=== PATIENT | female | born 1935 | race Caucasian/White ===

== ENCOUNTER 2016-04-11 05:10 | Emergency (ER) | payer MEDICARE, MEDICAID ==
[~2016-04-11] VITALS: Ht 152.4 cm; Wt 64.0 kg
[~2016-04-11 05:10] MED LIST: AMIT50TA13 PO; CARV25TA OR; INSU100V3 SC; LISI-357 PO; MECL25CH OR; SIMV80TA OR
[2016-04-11 05:11] VITALS: BP 198/77; PULSE 57; RESP 15; TEMP 97.6; O2SAT 98
[2016-04-11 05:21] VITALS: BP 191/74
[2016-04-11] MEDS ORDERED: AMIT10TA6 PO (05:29)
[2016-04-11] MEDS ORDERED: HYDR12.57 PO (05:29)
[2016-04-11] MEDS ORDERED: INSU100V3 SQ (05:29)
[2016-04-11] MEDS ORDERED: METO25TA3 PO (05:29)
[2016-04-11] MEDS ORDERED: NITR1SUB3 SL (05:29)
[2016-04-11] MEDS ORDERED: ATOR1TAB18 PO (05:29)
[2016-04-11] MEDS ORDERED: LEVO500T3 PO (05:29)
[2016-04-11] MEDS ORDERED: NIFE90TA2 (05:29)
[2016-04-11] MEDS ORDERED: SODIUM CHLOR 0.9% 1000 ML INJ 1,000 ML IV SCH (05:45)
--- NOTE | 2016-04-11 05:47 | PD ---
HPI Chief Complaint: Dizziness Time Seen by Provider: 05:22 Travel History International Travel<30 days: No Contact w/Intl Traveler<30days: No Traveled to known affect area: No History of Present Illness HPI The patient is 80 year old female who presents to the [facility] emergency department with a history of dizziness that began 3 weeks ago and has been associated with a headache that is bitemporal and throbbing in sensation and a throbbing sensation in her back. Patient reports that she last saw her primary care physician regarding this last week. She reports that she is also been admitted to [facility] on 2 occasions related to this and elevated blood pressure over the last few weeks. She reports that one time she was admitted for 3 days and then last week she was admitted for 2 days between Monday and Monday. She reports that she had a CAT scan done of the brain that was reportedly unremarkable. She reports that she's had some changes to her blood pressure medication, however she is unsure of the exact details. She reports that she did fill her prescriptions and has been taking them as prescribed, however her blood pressure continues to be elevated. 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 The patient denies having any numbness or tingling to her extremities. She denies having any one- sided weakness, difficulty with word finding ability, vision changes, or facial droop. The patient reports that the room seems to spend when she moves her head. She reports that the symptoms seemed to come and go. The patient denies having any recent fevers, cough, congestion, neck pain, chest pain, shortness of breath, abdominal pain, vomiting, diarrhea, urinary symptoms, or other neurologic symptoms. 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 The patient denies being followed by a neurologist or neurosurgeon. She reports that she has not had an MRI done in years. Diabetes: Yes (INSULIN DEPENDENT) Patient Takes Glucophage: No Hypertension: Yes Tetanus Vaccination: > 5 Years : 5 Para: 5 Past Surgical History Narrative Surgical The patient's past surgical history is significant for hysterectomy, brain tumor resection. Abdominal Surgery: Yes Hysterectomy: Yes Neurologic Surgery: Yes (BRAIN TUMOR REMOVED) Other Surgery: Yes Social History Alcohol Use: No Tobacco Use: No Substance Use: No Allergies-Medications (Allergen,Severity, Reaction): Coded Allergies: Penicillin (Verified Allergy, Intermediate, Rash, 04/11/16) Reported Meds & Prescriptions Reported Meds & Active Scripts Active Reported Humulin N Inj (Insulin Human NPH) 1,000 Unit/10 Ml Vial 1 Units SQ Nitroglycerin SL (Nitroglycerin) 0.4 Mg Subl 0.4 Mg SL DIRECTED PRN ONE TABLET UNDER THE TONGUE NEEDED FOR CHEST PAIN, MAY REPEAT EVERY FIVE MINUTES FOR A TOTAL OF 3 DOSES OR CALL 911 IF NO RELIEF Nifedipine ER (Nifedipine) 90 Mg Tab 30 Mg Nifedipine ER (Nifedipine) 90 Mg Tab Levofloxacin 500 Mg Tab 500 Mg PO DAILY Hydrochlorothiazide 12.5 Mg Cap 12.5 Mg PO DAILY Amitriptyline (Amitriptyline HCl) 10 Mg Tab 10 Mg PO HS Metoprolol Tartrate 25 Mg Tab 25 Mg PO BID Atorvastatin (Atorvastatin Calcium) 80 Mg Tab 80 Mg PO HS Humulin N 1 SC ACHS SLIDING SCALE Carvedilol 25 mg (Carvedilol) 25 Mg Tab 25 Mg OR DAILY Simvastatin 80 mg (Simvastatin) 80 Mg Tab 80 Mg OR DAILY Meclizine Hcl25 M3 25 Mg Chw 25 Mg OR DAILY Lisinopril 5 mg (Lisinopril) 5 Mg Tab 5 Mg PO DAILY Review of Systems Except as stated in HPI: all other systems reviewed are Neg General / Constitutional: No: Fever Eyes: No: Visual changes HENT: Positive: Headaches, Vertigo, No: Lightheadedness, Rhinorrhea, Congestion, Neck Stiffness, Neck Pain Cardiovascular: No: Chest Pain or Discomfort Respiratory: No: Shortness of Breath Gastrointestinal: No: Abdominal Pain Genitourinary: No: Dysuria Musculoskeletal: No: Pain Skin: No Rash Neurologic: Positive: Dizziness, Headache, No: Weakness, Focal Abnormalities, Change in Mentation, Slurred Speech, Sensory Disturbance Psychiatric: No: Depression Endocrine: No: Polydipsia Hematologic/Lymphatic: No: Easy Bruising Physical Exam Narrative General: The patient is a well-developed well-nourished female in no acute distress. The patient's initial blood pressure on arrival is 194/74. Head and Neck exam: Head is normocephalic atraumatic. Eyes: EOMI, pupils are equal round and reactive to light. Nose: Midline septum with pink mucous membranes Mouth: Dentition unremarkable. Moist mucus membranes. Posterior oropharynx is not erythematous. No tonsillar hypertrophy. Uvula midline. Airway patent. Neck: No palpable lymphadenopathy. No nuchal rigidity. No thyromegaly. Cardiovascular: Regular rate and rhythm without murmurs, gallops, or rubs. Lungs: Clear to auscultation bilaterally. No wheezes, rhonchi, or rales. Abdomen: Soft, without tenderness to palpation in all 4 quadrants of the abdomen. No guarding, rebound, or rigidity. Normal bowel sounds are audible. No tenderness on palpation of McBurney's point. Extremities: No clubbing, cyanosis, or edema. No calf tenderness on palpation. Back: No spinous process tenderness to palpation. No costovertebral angle tenderness to palpation. Neurologic Exam: Cranial nerves 2-12 were intact on exam. Strength is 5/5 in all 4 extremities. No sensory deficits noted. No dysdiadochokinesis. Good finger to nose and Heel to griggs bilaterally. Skin Exam: No rash noted. Intact skin that is warm and dry. Data Data Last Documented VS Vital Signs Date Time Temp Pulse Resp B/P Pulse Ox O2 Delivery O2 Flow Rate FiO2 04/11/16 05:21 191/74 04/11/16 05:11 97.6 57 15 98 Room Air Orders Electrocardiogram (04/11/16 05:36) Complete Blood Count With Diff (04/11/16 05:36) Comprehensive Metabolic Panel (04/11/16 05:36) Prothrombin Time / Inr (Pt) (04/11/16 05:36) Act Partial Throm Time (Ptt) (04/11/16 05:36) Lipase (04/11/16 05:36) Urinalysis - C+S If Indicated (04/11/16 05:36) Iv Access Insert/Monitor (04/11/16 05:36) Ecg Monitoring (04/11/16 05:36) Oximetry (04/11/16 05:36) Mri Brain W&W/O Contrast (04/11/16 ) Sodium Chlor 0.9% 1000 Ml Inj (Ns 1000 M (04/11/16 05:45) Lorazepam Inj (Ativan Inj) (04/11/16 06:45) Lorazepam Inj (Ativan Inj) (04/11/16 06:45) Labs Laboratory Tests Test 04/11/16 04/11/16 06:00 06:38 White Blood Count 5.6 TH/MM3 Red Blood Count 4.21 MIL/MM3 Hemoglobin 12.0 GM/DL Hematocrit 36.2 % Mean Corpuscular Volume 86.0 FL Mean Corpuscular Hemoglobin 28.4 PG Mean Corpuscular Hemoglobin 33.0 % Concent Red Cell Distribution Width 15.0 % Platelet Count 164 TH/MM3 Mean Platelet Volume 9.2 FL Neutrophils (%) (Auto) 64.6 % Lymphocytes (%) (Auto) 15.2 % Monocytes (%) (Auto) 10.8 % Eosinophils (%) (Auto) 8.7 % Basophils (%) (Auto) 0.7 % Neutrophils # (Auto) 3.6 TH/MM3 Lymphocytes # (Auto) 0.8 TH/MM3 Monocytes # (Auto) 0.6 TH/MM3 Eosinophils # (Auto) 0.5 TH/MM3 Basophils # (Auto) 0.0 TH/MM3 CBC Comment DIFF FINAL Differential Comment Sodium Level 140 MEQ/L Potassium Level 4.0 MEQ/L Chloride Level 105 MEQ/L Carbon Dioxide Level 24.8 MEQ/L Anion Gap 10 MEQ/L Blood Urea Nitrogen 34 MG/DL Creatinine 1.68 MG/DL Estimat Glomerular Filtration 29 ML/MIN Rate Random Glucose 137 MG/DL Calcium Level 9.3 MG/DL Total Bilirubin 0.4 MG/DL Aspartate Amino Transf 52 U/L (AST/SGOT) Alanine Aminotransferase 65 U/L (ALT/SGPT) Alkaline Phosphatase 127 U/L Total Protein 6.6 GM/DL Albumin 3.4 GM/DL Lipase 78 U/L Prothrombin Time 10.5 SEC Prothromb Time International 1.0 RATIO Ratio Activated Partial 24.7 SEC Thromboplast Time MDM Medical Decision Making Medical Screen Exam Complete: Yes Emergency Medical Condition: Yes Medical Record Reviewed: Yes Differential Diagnosis Benign positional vertigo, versus Mnire's disease, versus labyrinthitis, versus intracranial abnormality Narrative Course During the course of the patients emergency department visit, the patients history, examination, and differential diagnosis were reviewed with the patient. The patient had IV access obtained and blood work sent for analysis. The patient was placed on a compliance monitor with oximetry and blood pressure monitoring. The patient was started on normal saline at 75 mL per hour. The patient's records from [facility] were requested. An MRI of the brain was ordered. The patient was provided normal saline IV fluids. The patient's blood pressure will be monitored for improvement. The patients laboratory studies were reviewed and remarkable for a CBC that is unremarkable, CMP is remarkable for BUN of 34, creatinine 1.68, however the patient does have a history of renal insufficiency from looking at her other record at [facility] with a BUN previously is 20 and 1.28 creatinine, respectively. The patient's AST is 52, ALT 65, alkaline phosphatase 127, lipase 78. The patient's case was checked out to Dr. Brady for review of the patient's MRI of the brain recheck of the patient's blood pressure with disposition based on the conclusion of her workup. Diagnosis Primary Impression: Vertigo Additional Impression: Hypertension Prema Parkinson MD Apr 11, 2016 05:47
[2016-04-11 06:16] LABS: AUTOMATED NEUTROPHIL # 3.6 TH/MM3 (1.8-7.7); BASOPHIL % 0.7 % (0.0-2.0); EOSINOPHIL # 0.5 TH/MM3 (0-0.4); EOSINOPHIL % 8.7 % (0.0-4.0); HEMATOCRIT 36.2 % (35.0-46.0); HEMO FLAGS DIFF FINAL; LYMPH % 15.2 % (9.0-44.0); LYMPHOCYTE # 0.8 TH/MM3 (1.0-4.8); MEAN CORPUSCULAR HEMOGLOBIN 28.4 PG (27.0-34.0); MONO % 10.8 % (0.0-8.0); NEUT % 64.6 % (16.0-70.0); PLATELET COUNT 164 TH/MM3 (150-450); RED BLOOD COUNT 4.21 MIL/MM3 (4.00-5.30); WHITE BLOOD COUNT 5.6 TH/MM3 (4.0-11.0)
[2016-04-11 06:38] LABS: ALKALINE PHOSPHATASE 127 U/L (45-117); TOTAL BILIRUBIN ADULT 0.4 MG/DL (0.2-1.0)
[2016-04-11 06:45] LABS: ALT (GPT) 65 U/L (10-53); ANION GAP 10 MEQ/L (5-15); AST (GOT) 52 U/L (15-37); BICARBONATE 24.8 MEQ/L (21.0-32.0); BLOOD UREA NITROGEN 34 MG/DL (7-18); CHLORIDE 105 MEQ/L (98-107); GLOMERULAR FILTRATION RATE 29 ML/MIN (>89); SODIUM (NA) 140 MEQ/L (136-145)
[2016-04-11] MEDS ORDERED: LORazepam 2 MG/ML VIAL IM ONE (06:45)
[2016-04-11] MEDS ORDERED: LORazepam 2 MG/ML VIAL IV PUSH ONE (06:45)
[2016-04-11 06:59] LABS: APTT (PATIENT) 24.7 SEC (24.3-30.1); PROTHROMBIN TIME - PATIENT 10.5 SEC (9.8-11.6)
[2016-04-11 07:38] VITALS: BP 173/67; PULSE 73; RESP 16; O2SAT 98
--- NOTE | 2016-04-11 08:30 | RADRPT ---
EXAM DATE/TIME: 04/11/2016 07:59 [facility] COMPARISON: CT BRAIN W/O CONTRAST, July 02, 2012, 15:30. INDICATIONS : Dizziness. MEDICAL HISTORY : Hypertension. SURGICAL HISTORY : Craniotomy. Cholecystectomy. Hysterectomy. ENCOUNTER: Subsequent ACUITY: 2 months PAIN SCORE: 0/10 LOCATION: cranial TECHNIQUE: Multiplanar, multisequence MRI of the brain was performed without contrast. FINDINGS: Patient is status post right fronto temporal craniotomy. There is no evidence for acute infarction on diffusion weighted imaging. There is encephalomalacia and gliosis in the right posterior temporal re gion again noted. There is mild atrophy greatest in the frontal regions. There is no mass effect or h emorrhage.. CONCLUSION: No acute disease. Stable appearance of the brain. You Zuleta MD on April 11, 2016 at 8:27 Board Certified Radiologist. This report was verified electronically.
[2016-04-11 08:44] LABS: BACTERIA, URINE FEW /hpf; BLOOD, URINE TRACE (NEG); COMMENT (UR) CULTURE INDICATED; CULTURE IF INDICATED CULTURE INDICATED; GLUCOSE,URINE NEG (NEG); KETONE, URINE NEG (NEG); MUCUS URINE FEW /lpf (OCC); NITRITE,URINE NEG (NEG); PH, URINE 5.5 (5.0-8.5); SQUAMOUS EPITHELIAL CELL URINE 7 /hpf (0-5); TRANSITIONAL EPI CELLS, URINE <1 /hpf; URINE COLOR YELLOW (YELLW/STRAW)
[2016-04-11] MEDS ORDERED: CEPH-460 PO (08:57)
--- NOTE | 2016-04-11 08:57 | PD ---
Data Data Last Documented VS Vital Signs Date Time Temp Pulse Resp B/P Pulse Ox O2 Delivery O2 Flow Rate FiO2 04/11/16 07:38 73 16 173/67 98 Room Air 04/11/16 05:11 97.6 Orders Electrocardiogram (04/11/16 05:36) Complete Blood Count With Diff (04/11/16 05:36) Comprehensive Metabolic Panel (04/11/16 05:36) Prothrombin Time / Inr (Pt) (04/11/16 05:36) Act Partial Throm Time (Ptt) (04/11/16 05:36) Lipase (04/11/16 05:36) Urinalysis - C+S If Indicated (04/11/16 05:36) Iv Access Insert/Monitor (04/11/16 05:36) Ecg Monitoring (04/11/16 05:36) Oximetry (04/11/16 05:36) Sodium Chlor 0.9% 1000 Ml Inj (Ns 1000 M (04/11/16 05:45) Lorazepam Inj (Ativan Inj) (04/11/16 06:45) Lorazepam Inj (Ativan Inj) (04/11/16 06:45) Mri Brain W/O Contrast (04/11/16 ) Urine Culture (04/11/16 08:26) Labs Laboratory Tests Test 04/11/16 04/11/16 04/11/16 06:00 06:38 08:26 White Blood Count 5.6 TH/MM3 Red Blood Count 4.21 MIL/MM3 Hemoglobin 12.0 GM/DL Hematocrit 36.2 % Mean Corpuscular Volume 86.0 FL Mean Corpuscular Hemoglobin 28.4 PG Mean Corpuscular Hemoglobin 33.0 % Concent Red Cell Distribution Width 15.0 % Platelet Count 164 TH/MM3 Mean Platelet Volume 9.2 FL Neutrophils (%) (Auto) 64.6 % Lymphocytes (%) (Auto) 15.2 % Monocytes (%) (Auto) 10.8 % Eosinophils (%) (Auto) 8.7 % Basophils (%) (Auto) 0.7 % Neutrophils # (Auto) 3.6 TH/MM3 Lymphocytes # (Auto) 0.8 TH/MM3 Monocytes # (Auto) 0.6 TH/MM3 Eosinophils # (Auto) 0.5 TH/MM3 Basophils # (Auto) 0.0 TH/MM3 CBC Comment DIFF FINAL Differential Comment Sodium Level 140 MEQ/L Potassium Level 4.0 MEQ/L Chloride Level 105 MEQ/L Carbon Dioxide Level 24.8 MEQ/L Anion Gap 10 MEQ/L Blood Urea Nitrogen 34 MG/DL Creatinine 1.68 MG/DL Estimat Glomerular Filtration 29 ML/MIN Rate Random Glucose 137 MG/DL Calcium Level 9.3 MG/DL Total Bilirubin 0.4 MG/DL Aspartate Amino Transf 52 U/L (AST/SGOT) Alanine Aminotransferase 65 U/L (ALT/SGPT) Alkaline Phosphatase 127 U/L Total Protein 6.6 GM/DL Albumin 3.4 GM/DL Lipase 78 U/L Prothrombin Time 10.5 SEC Prothromb Time International 1.0 RATIO Ratio Activated Partial 24.7 SEC Thromboplast Time Urine Color YELLOW Urine Turbidity HAZY Urine pH 5.5 Urine Specific [place] 1.008 Urine Protein TRACE mg/dL Urine Glucose (UA) NEG mg/dL Urine Ketones NEG mg/dL Urine Occult Blood TRACE Urine Nitrite NEG Urine Bilirubin NEG Urine Urobilinogen LESS THAN 2.0 MG/DL Urine Leukocyte Esterase LARGE Urine RBC 8 /hpf Urine WBC /hpf Urine Squamous Epithelial 7 /hpf Cells Urine Transitional Epithelial <1 /hpf Cells Urine Bacteria FEW /hpf Urine Mucus FEW /lpf Microscopic Urinalysis Comment CULTURE INDICATED MDM Supervised Visit with JUAN M: Yes Narrative Course 80-year-old woman, here for evaluation of headache and blood pressure problems. She's been adjusting her blood pressure medications. 2 previous hospitalizations for the same complaints. Patient was viable Dr. Parkinson was signed out to to follow-up results of MRI and diagnostic testing. Studies show: CBC is unremarkable CMP with mildly elevated BUN and creatinine, mildly elevated AST ALT and alkaline phosphatase Lipase is normal UA with innumerable white blood cells MRI brain: No acute disease. FINAL: 80 year-old woman, blood pressures being modified as an outpatient. She has a lot of pyuria, this could be contributing or vertigo. Recommend treatment for UTI, outpatient follow-up for blood pressure. Diagnosis Primary Impression: Vertigo Additional Impressions: Hypertension UTI (urinary tract infection) Additional Instruction: Take antibiotics as prescribed. Continue blood pressure medications. Follow up with her primary doctor in 2-3 days. Return to the emergency department for any new or worsening symptoms. Med/Other Pt SpecificInfo: Prescription(s) given Scripts Cephalexin (Keflex)500 Mg Spw091 Mg PO Q8H #30 CAP Ref 0 Prov:Fadi Brady MD 04/11/16 Disposition: 01 DISCHARGE HOME Condition: Stable Fadi Brady MD Apr 11, 2016 08:57
--- NOTE | 2016-04-11 18:23 | EKG ---
Date Performed: 04/11/2016 Time Performed: 06:21:27 PTAGE: 80 years EKG: Sinus rhythm WITH FIRST DEGREE AV BLOCK Since previous tracing, no significant change noted ABNORMAL ECG PREVIOUS TRACING : 05/28/1998 20.30 DOCTOR: Anaya Irene Interpretating Date/Time 04/11/2016 18:21:34
== END 2016-04-11 10:10 | disposition home or self-care (01) ==
LOC: NEPE 05:10
DX: R42 Dizziness and giddiness (principal); I10 Essential (primary) hypertension; N39.0 Urinary tract infection, site not specified; B96.20 Unspecified Escherichia coli [E. coli] as the cause of diseases classified elsewhere; R51 Headache; R94.31 Abnormal electrocardiogram [ECG] [EKG]; H93.19 Tinnitus, unspecified ear; E11.9 Type 2 diabetes mellitus without complications; E78.5 Hyperlipidemia, unspecified; Z79.4 Long term (current) use of insulin; Z87.448 Personal history of other diseases of urinary system; Z79.899 Other long term (current) drug therapy
CPT/HCPCS: 70551; 80053; 81001; 83690; 85025; 85610; 85730; 87077; 87086; 87186; 93005; 96361; 96374; 99284; J2060; J7030

== ENCOUNTER 2017-05-14 06:08 | Inpatient (IN) | payer MEDICARE, MEDICAID ==
[~2017-05-14] VITALS: Ht 152.4 cm; Wt 65.1 kg
[2017-05-14] VITALS (21 sets, daily range): BP systolic 153–223; BP diastolic 66–98; PULSE 44–60; RESP 14–27; TEMP 97.6–98.8; O2SAT 94–100
[~2017-05-14 06:08] MED LIST changes: +AMIT10TA6 PO; -AMIT50TA13 PO; +ATOR80TA45 PO; -CARV25TA OR; +CEPH-460 PO; +HYDR12.57 PO; -INSU100V3 SC; +INSU100V3 SQ; +LEVO500T3 PO; -LISI-357 PO; -MECL25CH OR; +METO25TA3 PO; +NIFE90TA2; +NITR1SUB3 SL; -SIMV80TA OR
[2017-05-14] MEDS ORDERED: SODIUM CHLORIDE 0.9% FLUSH 10 ML FLUSH IVF PRN (06:30)
--- NOTE | 2017-05-14 06:36 | PD ---
HPI Chief Complaint: Respiratory Symptoms Time Seen by Provider: 06:30 Travel History International Travel<30 days: No Contact w/Intl Traveler<30days: No Traveled to known affect area: No History of Present Illness HPI 81-year-old female presents to the emergency department complaining of 3 weeks of shortness of breath that has progressively worsened. Patient states 1 week ago Monday she was seen at [facility] where she had multiple tests done and they told her that there is no fluid on her lungs and that she was fine and she go home and follow-up with her primary care provider. No new medications were added and none of her current medications were adjusted or changed. Patient followed up with her primary care provider on Monday and again no change in medications and no additional medications no further testing was done. Patient was given an appointment for follow-up May 17. Patient states due to progressive shortness of breath at rest, with exertion, and with orthopnea she decided to come to the emergency room at this time. Patient is also noted some discomfort in her chest that is nonradiating and does not refer to the neck job back shoulder arms or abdomen. Patient does not report any fever or chills and denies any productive cough. Patient had no hemoptysis. Patient is not reporting nausea vomiting or diarrhea or abdominal pain. No hematemesis no coffee-ground emesis no melena hematochezia. Patient denies any urinary symptoms. Patient does have history of hypertension dyslipidemia and diabetes but denies known coronary vessel disease and denies tobacco use. Patient has family history of heart disease in her mother but not premature onset. Patient has undergone a stress test approximately 5 years ago that was reportedly normal. Patient rates discomfort/pain 0/10 in intensity. Patient also states she has had no lower extremity pain or swelling and no recent long distance travel protracted bedrest surgical procedure and no history of clotting disorder. Review of medical records identifies patient has had coronary stents in the past. [facility] Past Medical History Narrative Medical Aspirin use, CAD with coronary stent per review of medical record, hypertension , dyslipidemia, diabetes; cholecystectomy hysterectomy brain tumor excision; no tobacco use; nursing notes reviewed Cardiovascular Problems: Yes (cardiac stent) High Cholesterol: Yes Coronary Artery Disease: Yes Diabetes: Yes (INSULIN DEPENDENT) Patient Takes Glucophage: No Hypertension: Yes Tetanus Vaccination: Unknown Influenza Vaccination: No ?: Not : 5 Para: 5 Past Surgical History Abdominal Surgery: Yes Cholecystectomy: Yes Coronary Stent: Yes Hysterectomy: Yes Neurologic Surgery: Yes (BRAIN TUMOR REMOVED) Other Surgery: Yes Social History Alcohol Use: No Tobacco Use: No Substance Use: No Allergies-Medications (Allergen,Severity, Reaction): Coded Allergies: Penicillins (Verified Allergy, Severe, 05/14/17) rash Reported Meds & Prescriptions Reported Meds & Active Scripts Active Keflex (Cephalexin) 500 Mg Cap 500 Mg PO Q8H Reported Humulin N Inj (Insulin Human NPH) 1,000 Unit/10 Ml Vial 1 Units SQ Nitroglycerin SL (Nitroglycerin) 0.4 Mg Subl 0.4 Mg SL DIRECTED PRN ONE TABLET UNDER THE TONGUE NEEDED FOR CHEST PAIN, MAY REPEAT EVERY FIVE MINUTES FOR A TOTAL OF 3 DOSES OR CALL 911 IF NO RELIEF Nifedipine ER (Nifedipine) 90 Mg Tab 30 Mg Nifedipine ER (Nifedipine) 90 Mg Tab Levofloxacin 500 Mg Tab 500 Mg PO DAILY Hydrochlorothiazide 12.5 Mg Cap 12.5 Mg PO DAILY Amitriptyline (Amitriptyline HCl) 10 Mg Tab 10 Mg PO HS Metoprolol Tartrate 25 Mg Tab 25 Mg PO BID Atorvastatin (Atorvastatin Calcium) 80 Mg Tab 80 Mg PO HS Review of Systems Except as stated in HPI: all other systems reviewed are Neg General / Constitutional: No: Fever, Chills HENT: No: Congestion Cardiovascular: Positive: Chest Pain or Discomfort, Dyspnea on exertion, No: Palpitations, Syncope, Edema Respiratory: Positive: Shortness of Breath, Orthopnea, No: Pleuritic Pain Gastrointestinal: No: Nausea, Vomiting, Diarrhea, Abdominal Pain Genitourinary: No: Dysuria, Flank Pain Musculoskeletal: No: Myalgias, Arthralgias Skin: No Rash Neurologic: No: Weakness, Dizziness, Syncope Psychiatric: No: Anxiety Hematologic/Lymphatic: No: Lymph Node Enlargement Physical Exam Narrative GENERAL: Well-developed well-nourished elderly female in no acute distress or respiratory distress resting supine; GCS 15 SKIN: Warm and dry. HEAD: Normocephalic. EYES: No scleral icterus. No injection or drainage. NECK: Supple, trachea midline. No JVD or lymphadenopathy. CARDIOVASCULAR: Regular rate and rhythm without murmurs, gallops, or rubs. Radial and dorsalis pedis pulses 2+ to palpation bilaterally RESPIRATORY: Breath sounds equal bilaterally. No accessory muscle use. GASTROINTESTINAL: Abdomen soft, non-tender, nondistended. MUSCULOSKELETAL: No cyanosis, or edema. No lower leg ankle or pedal edema negative Homans sign no posterior calf cording. No redness no increased warmth no pallor or coolness. BACK: Nontender without obvious deformity. No CVA tenderness. Data Data Last Documented VS Vital Signs Date Time Temp Pulse Resp B/P (MAP) Pulse Ox O2 Delivery O2 Flow Rate FiO2 05/14/17 07:10 54 16 212/88 (129) 99 Room Air 05/14/17 06:54 2.00 05/14/17 06:09 98.0 Orders Orders Complete Blood Count With Diff (05/14/17 06:30) Basic Metabolic Panel (Bmp) (05/14/17 06:30) B-Type Natriuretic Peptide (05/14/17 06:30) Act Partial Throm Time (Ptt) (05/14/17 06:30) Prothrombin Time / Inr (Pt) (05/14/17 06:30) Magnesium (Mg) (05/14/17 06:30) Ckmb (Isoenzyme) Profile (05/14/17 06:30) Troponin I (05/14/17 06:30) Urinalysis - C+S If Indicated (05/14/17 06:30) Iv Access Insert/Monitor (05/14/17 06:30) Electrocardiogram (05/14/17 06:30) Ecg Monitoring (05/14/17 06:30) Oximetry (05/14/17 06:30) Oxygen Administration (05/14/17 06:30) Chest, Single Ap (05/14/17 06:30) Sodium Chloride 0.9% Flush (Ns Flush) (05/14/17 06:30) Labs Laboratory Tests Test 05/14/17 06:50 [facility] Medical Decision Making Medical Screen Exam Complete: Yes Emergency Medical Condition: Yes Medical Record Reviewed: Yes Differential Diagnosis Dyspnea, CHF, ACS, pneumonia, PE, anemia Narrative Course Patient placed on manager monitoring with continuous pulse oximetry; IV access obtained; specimens collected and sent for resulting Care signed over to Dr Ashley @ [id number] Zahraa Mccallum MD May 14, 2017 06:36
--- NOTE | 2017-05-14 06:51 | RADRPT ---
EXAM DATE/TIME: 05/14/2017 06:34 [facility] COMPARISON: No previous studies available for comparison. INDICATIONS : Shortness of breath. MEDICAL HISTORY : Hypertension. SURGICAL HISTORY : Craniotomy. Cholecystectomy. Hysterectomy. ENCOUNTER: Initial ACUITY: 1 day PAIN SCORE: 0/10 LOCATION: Bilateral chest FINDINGS: Cardiomegaly. Mild interstitial prominence. No effusion or consolidation. Degenerative changes of the spine. CONCLUSION: Mild interstitial prominence may reflect mild edema. No consolidation. You Zuleta MD on May 14, 2017 at 6:49 Board Certified Radiologist. This report was verified electronically.
[2017-05-14 07:12] LABS: AUTOMATED NEUTROPHIL # 4.6 TH/MM3 (1.8-7.7); BASOPHIL # 0.1 TH/MM3 (0-0.2); BASOPHIL % 0.8 % (0.0-2.0); EOSINOPHIL # 0.2 TH/MM3 (0-0.4); EOSINOPHIL % 3.8 % (0.0-4.0); HEMATOCRIT 34.5 % (35.0-46.0); HEMOGLOBIN 11.8 GM/DL (11.6-15.3); LYMPH % 13.2 % (9.0-44.0); LYMPHOCYTE # 0.8 TH/MM3 (1.0-4.8); MEAN CELL VOLUME 86.6 FL (80.0-100.0); MEAN CORPUSCULAR HEMOGLOBIN 29.5 PG (27.0-34.0); MEAN CORPUSCULAR HGB CONC 34.1 % (32.0-36.0); MEAN PLATELET VOLUME 9.3 FL (7.0-11.0); MONO % 9.6 % (0.0-8.0); MONOCYTE # 0.6 TH/MM3 (0-0.9); NEUT % 72.6 % (16.0-70.0); PLATELET COUNT 190 TH/MM3 (150-450); RED BLOOD COUNT 3.99 MIL/MM3 (4.00-5.30); RED CELL DISTRIBUTION WIDTH 13.8 % (11.6-17.2); WHITE BLOOD COUNT 6.3 TH/MM3 (4.0-11.0)
[2017-05-14 07:24] LABS: PROTHROMBIN TIME - PATIENT 10.1 SEC (9.8-11.6)
[2017-05-14 07:26] LABS: BICARBONATE 26.5 MEQ/L (21.0-32.0); BLOOD UREA NITROGEN 34 MG/DL (7-18); CALCIUM 9.2 MG/DL (8.5-10.1); CHLORIDE 109 MEQ/L (98-107); CREATININE 2.18 MG/DL (0.50-1.00); GLOMERULAR FILTRATION RATE 22 ML/MIN (>89); GLUCOSE,RANDOM 126 MG/DL (74-106); MAGNESIUM 2.4 MG/DL (1.5-2.5); SODIUM (NA) 142 MEQ/L (136-145)
[2017-05-14 07:30] LABS: TROPONIN I LESS THAN 0.02 NG/ML (0.02-0.05)
[2017-05-14] MEDS ORDERED: ASPIRIN 325 MG TAB PO ONE (08:00)
[2017-05-14] MEDS ORDERED: NITROGLYCERIN 2% OINT 1 GM PACKET TOP ONE (08:00)
[2017-05-14] MEDS ORDERED: FUROSEMIDE 40 MG/4 ML VIAL IV PUSH ONE (08:00)
--- NOTE | 2017-05-14 08:23 | PD ---
Physical Exam Narrative GENERAL: SKIN: Warm and dry. HEAD: Atraumatic. Normocephalic. EYES: Pupils equal and round. No injection or drainage. ENT: No nasal bleeding or discharge. Mucous membranes pink and moist. NECK: Trachea midline. No JVD. RESPIRATORY: No accessory muscle use. no increased effort GASTROINTESTINAL: Abdomen nondistended. NEUROLOGICAL: Awake and alert. Motor grossly within normal limits. Normal speech. PSYCHIATRIC: Appropriate mood and affect; insight and judgment normal. Data Data Last Documented VS Vital Signs Date Time Temp Pulse Resp B/P (MAP) Pulse Ox O2 Delivery O2 Flow Rate FiO2 05/14/17 07:10 54 16 212/88 (129) 99 Room Air 05/14/17 06:54 2.00 05/14/17 06:09 98.0 Orders Orders Complete Blood Count With Diff (05/14/17 06:30) Basic Metabolic Panel (Bmp) (05/14/17 06:30) B-Type Natriuretic Peptide (05/14/17 06:30) Act Partial Throm Time (Ptt) (05/14/17 06:30) Prothrombin Time / Inr (Pt) (05/14/17 06:30) Magnesium (Mg) (05/14/17 06:30) Ckmb (Isoenzyme) Profile (05/14/17 06:30) Troponin I (05/14/17 06:30) Urinalysis - C+S If Indicated (05/14/17 06:30) Iv Access Insert/Monitor (05/14/17 06:30) Electrocardiogram (05/14/17 06:30) Ecg Monitoring (05/14/17 06:30) Oximetry (05/14/17 06:30) Oxygen Administration (05/14/17 06:30) Chest, Single Ap (05/14/17 06:30) Sodium Chloride 0.9% Flush (Ns Flush) (05/14/17 06:30) Furosemide Inj (Lasix Inj) (05/14/17 08:00) Nitroglycerin 2% Oint (Nitroglycerin 2% (05/14/17 08:00) Aspirin (Aspirin) (05/14/17 08:00) Admit Order (Ed Use Only) (05/14/17 08:09) Labs Laboratory Tests Test 05/14/17 06:50 White Blood Count 6.3 TH/MM3 Red Blood Count 3.99 MIL/MM3 Hemoglobin 11.8 GM/DL Hematocrit 34.5 % Mean Corpuscular Volume 86.6 FL Mean Corpuscular Hemoglobin 29.5 PG Mean Corpuscular Hemoglobin Concent 34.1 % Red Cell Distribution Width 13.8 % Platelet Count 190 TH/MM3 Mean Platelet Volume 9.3 FL Neutrophils (%) (Auto) 72.6 % Lymphocytes (%) (Auto) 13.2 % Monocytes (%) (Auto) 9.6 % Eosinophils (%) (Auto) 3.8 % Basophils (%) (Auto) 0.8 % Neutrophils # (Auto) 4.6 TH/MM3 Lymphocytes # (Auto) 0.8 TH/MM3 Monocytes # (Auto) 0.6 TH/MM3 Eosinophils # (Auto) 0.2 TH/MM3 Basophils # (Auto) 0.1 TH/MM3 CBC Comment DIFF FINAL Differential Comment Prothrombin Time 10.1 SEC Prothromb Time International Ratio 1.0 RATIO Activated Partial Thromboplast Time 23.7 SEC Blood Urea Nitrogen 34 MG/DL Creatinine 2.18 MG/DL Random Glucose 126 MG/DL Calcium Level 9.2 MG/DL Magnesium Level 2.4 MG/DL Sodium Level 142 MEQ/L Potassium Level 4.1 MEQ/L Chloride Level 109 MEQ/L Carbon Dioxide Level 26.5 MEQ/L Anion Gap 7 MEQ/L Estimat Glomerular Filtration Rate 22 ML/MIN Total Creatine Kinase 52 U/L Troponin I LESS THAN 0.02 NG/ML B-Type Natriuretic Peptide 934 PG/ML MDM Supervised Visit with JUAN M: No Interpretation(s) CBC & BMP Diagram 05/14/17 06:50 Calcium Level 9.2, Magnesium Level 2.4 Last 24 hours Impressions Chest X-Ray 05/14/17 0630 Signed Impressions: Service Date/Time: Sunday, May 14, 2017 06:34 - CONCLUSION: Mild interstitial prominence may reflect mild edema. No consolidation. You Zuleta MD Narrative Course signed over to me to follow workup and admit, patient with chf new onset, will dose with aspirin, lasix, nitro paste and follow, bp 215/108, will place in cic for close monitoring, patient concurrently with renal failure worse then prior here as well, patient updated and agrees to admit Physician Communication Physician Communication dr barillas agrees to admit Diagnosis Primary Impression: CHF (congestive heart failure) Qualified Codes: I50.9 - Heart failure, unspecified Additional Impressions: Hypertensive urgency Chest pain Qualified Codes: R07.9 - Chest pain, unspecified Renal insufficiency Admitting Information Admitting Physician Requests: it Chaya Ashley MD May 14, 2017 08:23
[2017-05-14] MEDS ORDERED: DEXTROSE 50% IN WATER 50 ML VIAL(D50) IV PUSH PRN (08:30)
[2017-05-14] MEDS ORDERED: GLUCAGON 1 MG/ML VIAL OTHER PRN (08:30)
[2017-05-14] MEDS ORDERED: NITROGLYCERIN 0.4 MG SL 25 TABS/BTL SL PRN (08:45)
--- NOTE | 2017-05-14 08:47 | HHI.HP ---
[facility] Service [facility] Primary Care Physician No Primary Care Physician Admission Diagnosis chf, chest pain Diagnoses: (1) CHF (congestive heart failure) Diagnosis: Principal Chief Complaint: shortness of breath Travel History International Travel<30 Days: No Contact w/Intl Traveler <30 Da: No Traveled to Known Affected Are: No History of Present Illness patient is a 81 y/o female with history of CAD, hypertension, diabetes, dyslipidemia presented to ER with sob. she says that she's been having sob for the past three weeks which has been gradually getting worse. she reports orthopnea, PND, swelling of the legs and two-pound weight gain within the last month. she says that she went to [facility] and had some tests done and she was discharged home. she had a f/u with her PCP. however her sob didn't improve when she decided to come to ER. she says that she had some chest pain about a week ago which lasted for a couple of days. pain was midsternal with no radiation and with no association with nausea, vomiting or diaphoresis. she's current;y chest pain free. Review of Systems Constitutional: COMPLAINS OF: Weight gain, DENIES: Fever, Weight loss, Chills, Night Sweats Eyes: DENIES: Blurred vision, Diplopia, Vision loss, Double Vision Ears, nose, mouth, throat: DENIES: Tinnitus, Vertigo, Throat pain, Epistaxis Respiratory: DENIES: Apneas, Cough, Snoring, Wheezing, Hemoptysis, Sputum production, Shortness of breath Cardiovascular: COMPLAINS OF: Chest pain, Dyspnea on Exertion, PND, Lower Extremity Edema, Orthopnea, DENIES: Palpitations, Syncope, Claudication Gastrointestinal: DENIES: Abdominal pain, Black stools, Bloody stools, Constipation, Diarrhea, Nausea, Vomiting, Difficulty Swallowing, Anorexia Genitourinary: DENIES: Urinary frequency, Urgency, Hematuria, Dysuria Musculoskeletal: DENIES: Joint pain, Muscle aches, Stiffness, Joint Swelling Integumentary: DENIES: Rash Neurologic: DENIES: Abnormal gait, Headache, Localized weakness, Paresthesias, Seizures, Speech Problems, Tremor, Poor Balance Psychiatric: DENIES: Anxiety, Confusion, Mood changes, Depression, Hallucinations, Agitation, Suicidal Ideation, Homicidal Ideation, Delusions Past Family Social History Past Medical History CAD/hypertension/diabetes/dyslipidemia/lymphoma/benign brain tumor Past Surgical History hysterectomy/ brain surgery/cholecystectomy. Reported Medications Humulin N Inj (Insulin Human NPH) 1,000 Unit/10 Ml Vial 1 Units SQ Nitroglycerin SL (Nitroglycerin) 0.4 Mg Subl 0.4 Mg SL DIRECTED PRN ONE TABLET UNDER THE TONGUE NEEDED FOR CHEST PAIN, MAY REPEAT EVERY FIVE MINUTES FOR A TOTAL OF 3 DOSES OR CALL 911 IF NO RELIEF Nifedipine ER (Nifedipine) 90 Mg Tab 30 Mg Nifedipine ER (Nifedipine) 90 Mg Tab Levofloxacin 500 Mg Tab 500 Mg PO DAILY Hydrochlorothiazide 12.5 Mg Cap 12.5 Mg PO DAILY Amitriptyline (Amitriptyline HCl) 10 Mg Tab 10 Mg PO HS Metoprolol Tartrate 25 Mg Tab 25 Mg PO BID Atorvastatin (Atorvastatin Calcium) 80 Mg Tab 80 Mg PO HS Allergies: Coded Allergies: Penicillins (Verified Allergy, Severe, 05/14/17) rash Active Ordered Medications Inpatient Medications Aspirin (Aspirin) 325 mg ONCE ONCE PO ; Start 05/14/17 at 08:00; Stop 05/14/17 at 08:01; Status DC Furosemide (Lasix Inj) 40 mg ONCE ONCE IV PUSH ; Start 05/14/17 at 08:00; Stop 05/14/17 at 08:01; Status DC Nitroglycerin (Nitroglycerin 2% Oint) 0.5 inch ONCE ONCE TOP ; Start 05/14/17 at 08:00; Stop 05/14/17 at 08:01; Status DC Sodium Chloride (NS Flush) 2 ml UNSCH PRN IVF FLUSH AFTER USING IV ACCESS; Start 05/14/17 at 06:30 Family History stroke in sister. Social History no smoking or drinking. Physical Exam Vital Signs Vital Signs Date Time Temp Pulse Resp B/P (MAP) Pulse Ox O2 Delivery O2 Flow Rate FiO2 05/14/17 07:10 54 16 212/88 (129) 99 Room Air 05/14/17 06:54 54 22 223/88 (133) 99 Nasal Cannula 2.00 05/14/17 06:50 98 Room Air 05/14/17 06:09 98.0 60 20 95 Physical Exam GENERAL: This is a well-nourished, well-developed patient, in no apparent distress. SKIN: No rashes, ecchymoses or lesions. Cool and dry. HEAD: Atraumatic. Normocephalic. No temporal or scalp tenderness. EYES: Pupils equal round and reactive. Extraocular motions intact. No scleral icterus. No injection or drainage. ENT: Nose without bleeding, purulent drainage or septal hematoma. Throat without erythema, tonsillar hypertrophy or exudate. Uvula midline. Airway patent. NECK: Trachea midline. No JVD or lymphadenopathy. Supple, nontender, no meningeal signs. CARDIOVASCULAR: Regular rate and rhythm without murmurs, gallops, or rubs. RESPIRATORY: Clear to auscultation. Breath sounds equal bilaterally. No wheezes , rales, or rhonchi. GASTROINTESTINAL: Abdomen soft, non-tender, nondistended. No hepato-splenomegaly , or palpable masses. No guarding. MUSCULOSKELETAL: Extremities with mild bilateral pedal edema. NEUROLOGICAL: Awake and alert. Cranial nerves II through XII intact. Motor and sensory grossly within normal limits. Five out of 5 muscle strength in all muscle groups. Normal speech. Laboratory Laboratory Tests Test 05/14/17 06:50 White Blood Count 6.3 Red Blood Count 3.99 Hemoglobin 11.8 Hematocrit 34.5 Mean Corpuscular Volume 86.6 Mean Corpuscular Hemoglobin 29.5 Mean Corpuscular Hemoglobin Concent 34.1 Red Cell Distribution Width 13.8 Platelet Count 190 Mean Platelet Volume 9.3 Neutrophils (%) (Auto) 72.6 Lymphocytes (%) (Auto) 13.2 Monocytes (%) (Auto) 9.6 Eosinophils (%) (Auto) 3.8 Basophils (%) (Auto) 0.8 Neutrophils # (Auto) 4.6 Lymphocytes # (Auto) 0.8 Monocytes # (Auto) 0.6 Eosinophils # (Auto) 0.2 Basophils # (Auto) 0.1 CBC Comment DIFF FINAL Differential Comment Prothrombin Time 10.1 Prothromb Time International Ratio 1.0 Activated Partial Thromboplast Time 23.7 Blood Urea Nitrogen 34 Creatinine 2.18 Random Glucose 126 Calcium Level 9.2 Magnesium Level 2.4 Sodium Level 142 Potassium Level 4.1 Chloride Level 109 Carbon Dioxide Level 26.5 Anion Gap 7 Estimat Glomerular Filtration Rate 22 Total Creatine Kinase 52 Troponin I LESS THAN 0.02 B-Type Natriuretic Peptide 934 Result Diagram: 05/14/17 0650 05/14/17 0650 Imaging Last Impressions Chest X-Ray 05/14/17 0630 Signed Impressions: Service Date/Time: Sunday, May 14, 2017 06:34 - CONCLUSION: Mild interstitial prominence may reflect mild edema. No consolidation. You Zuleta MD EKG; sinus rhythm with first-degree AV block. Caprini VTE Risk Assessment Caprini VTE Risk Assessment: Mod/High Risk (score >= 2) Caprini Risk Assessment Model Point Value = 1 Point Value = 2 Point Value = 3 Point Value = 5 Age 41-60 Minor surgery BMI > 25 kg/m2 Swollen legs Varicose veins or History of unexplained or recurrent spontaneous Oral contraceptives or hormone replacement Sepsis (< 1 month) Serious lung disease, including pneumonia (< 1 month) Abnormal pulmonary function Acute myocardial infarction Congestive heart failure (< 1 month) History of inflammatory bowel disease Medical patient at bed rest Age 61-74 Arthroscopic surgery Major open surgery (> 45 min) Laparoscopic surgery (> 45 min) Malignancy Confined to bed (> 72 hours) Immobilizing plaster cast Central venous access Age >= 75 History of VTE Family history of VTE Factor V Leiden Prothrombin [id number] Lupus anticoagulant Anticardiolipin antibodies Elevated serum homocysteine Heparin-induced thrombocytopenia Other congenital or acquired thrombophilia Stroke (< 1 month) Elective arthroplasty Hip, pelvis, or leg fracture Acute spinal cord injury (< 1 month) Prophylaxis Regimen Total Risk Factor Score Risk Level Prophylaxis Regimen 0-1 Low Early ambulation 2 Moderate Order ONE of the following: *Sequential Compression Device (SCD) *Heparin 5000 units SQ BID 3-4 Higher Order ONE of the following medications: *Heparin 5000 units SQ TID *Enoxaparin/Lovenox 40 mg SQ daily (WT < 150 kg, CrCl > 30 mL/min) *Enoxaparin/Lovenox 30 mg SQ daily (WT < 150 kg, CrCl > 10-29 mL/min) *Enoxaparin/Lovenox 30 mg SQ BID (WT < 150 kg, CrCl > 30 mL/min) AND/OR *Sequential Compression Device (SCD) 5 or more Highest Order ONE of the following medications: *Heparin 5000 units SQ TID (Preferred with Epidurals) *Enoxaparin/Lovenox 40 mg SQ daily (WT < 150 kg, CrCl > 30 mL/min) *Enoxaparin/Lovenox 30 mg SQ daily (WT < 150 kg, CrCl > 10-29 mL/min) *Enoxaparin/Lovenox 30 mg SQ BID (WT < 150 kg, CrCl > 30 mL/min) AND *Sequential Compression Device (SCD) Assessment and Plan Assessment and Plan A/P - decompensated CHF continue with IV diuretics with close monitoring of renal function. continue BB- daily weight. check echo. consider cardiology consult pending the clinical course and result of echo. keep on oxygen as needed to keep O2 sat >90%. will obtain the medical record from [facility]. -CAD- s/p stent placement with reported chest pain first troponin negative and no acute St-T changes on EKG.she's currently chest- pain free- continue aspirin, BB and statin- trend the cardiac enzymes. -hypertensive urgency; will resume her BB- vasotec prn- will monitor and adjust the regimen as needed. -CKD- will monitor the renal function closely while on diuretics. -diabetes mellitus; accu-check with SSI for now. -dyslipidemia;resume statin -DVT prophylaxis with subq Heparin Discussed Condition With ER physician and the patient. Physician Certification 2 Midnight Certification Type: Admission for Inpatient Services Order for Inpatient Services The services are ordered in accordance with Medicare regulations or non- Medicare payer requirements, as applicable. In the case of services not specified as inpatient-only, they are appropriately provided as inpatient services in accordance with the 2-midnight benchmark. Estimated LOS (days): 2 days is the estimated time the patient will need to remain in the hospital, assuming treatment plan goals are met and no additional complications. Post-Hospital Plan: Home Problem Qualifiers (1) CHF (congestive heart failure): Qualified Codes: I50.9 - Heart failure, unspecified Rahul Capps MD May 14, 2017 08:46
[2017-05-14] MEDS: METOPROLOL TARTRATE 25 MG TAB PO SCH ×2 (09:08→20:16)
[2017-05-14] MEDS: POTASSIUM CHLORIDE 20 MEQ CONTROLLED RELEASE TAB PO SCH (09:08)
[2017-05-14] MEDS: HEPARIN SODIUM - SQ 10,000 UNITS/ML VIAL SQ SCH ×2 (09:08→20:21)
[2017-05-14] MEDS: ENALAPRILAT 1.25 MG/ML VIAL IV PUSH PRN (09:11)
[2017-05-14] MEDS ORDERED: NIFEdipine 30 MG SUSTAINED RELEASE TAB PO ONE (10:30)
[2017-05-14] MEDS: INSULIN ASPART SUPPLEMENTAL SCALE SQ SCH ×3 (11:51→20:25)
[2017-05-14] MEDS ORDERED: cloNIDine HCL 0.1 MG TAB PO ONE (12:00)
--- NOTE | 2017-05-14 12:58 | EKG ---
Date Performed: 05/14/2017 Time Performed: 07:02:50 PTAGE: 81 years EKG: SINUS BRADYCARDIA WITH FIRST DEGREE AV BLOCK NONSPECIFIC T-WAVE ABNORMALITY ABNORMAL ECG Si nce PREVIOUS TRACING , no significant change noted PREVIOUS TRACIN04/11/2016 06.21 DOCTOR: Rafael Roberts Interpretating Date/Time 05/14/2017 12:57:34
--- NOTE | 2017-05-14 12:58 | HHI.PR ---
Addendum To [facility] Progress Not Reason for addendum: Additonal documentation (patient is still hypertensive - with the last BP 200/ 95 despite receiving her BP meds, dose of procardia and clonidine- will strat on nitro-drip and close monitoring of her BP- will transfer to ICU. d/w the RN. ) Rahul Capps MD May 14, 2017 12:58
[2017-05-14] MEDS: NITROGLYCERIN-D5W 50 MG/250 ML 250 ML IV PRN (13:08)
[2017-05-14] MEDS ORDERED: FUROSEMIDE 20 MG/2 ML VIAL IV PUSH ONE (14:00)
[2017-05-14] MEDS: ACETAMINOPHEN 325 MG TAB PO PRN (18:19)
[2017-05-14] MEDS ORDERED: CHLORHEXIDINE GLUCONATE 2 % 1 PACK (2 CLOTHS)(extra cloths) TOPICAL PRN (19:00)
[2017-05-14] MEDS: ATORVASTATIN 80 MG TAB PO SCH (20:21)
[2017-05-14] MEDS: AMITRIPTYLINE HCL 10 MG TAB PO SCH (20:21)
[2017-05-15] VITALS (12 sets, daily range): BP systolic 139–188; BP diastolic 62–79; PULSE 48–79; RESP 15–23; TEMP 97.9–98.7; O2SAT 95–97
[2017-05-15] MEDS: CHLORHEXIDINE GLUCONATE 2 % 1 PACK (2 CLOTHS)(taper/protocol) TOPICAL SCH (04:00)
[2017-05-15 05:25] LABS: BICARBONATE 26.2 MEQ/L (21.0-32.0); CREATININE 2.32 MG/DL (0.50-1.00)
--- NOTE | 2017-05-15 07:48 | HHI.PR ---
Subjective Remarks f/u; hypertensive urgency/ CHF in no acute distress. denies chest pain or sob. still on Nitro drip- couldn't be tapered off last night. d/w the RN. Objective Vitals Vital Signs Date Time Temp Pulse Resp B/P (MAP) Pulse Ox O2 Delivery O2 Flow Rate FiO2 05/15/17 06:00 50 05/15/17 04:00 55 05/15/17 04:00 98.2 55 18 178/75 (109) 97 05/15/17 02:00 48 05/15/17 00:00 49 05/15/17 00:00 98.0 49 23 139/65 (89) 96 05/14/17 22:00 47 05/14/17 20:00 98.8 50 22 157/74 (101) 95 05/14/17 20:00 50 05/14/17 19:49 96 Nasal Cannula 2.00 05/14/17 19:00 98 Nasal Cannula 2.00 05/14/17 18:19 61 194/84 05/14/17 18:00 50 05/14/17 17:00 48 16 153/66 (95) 94 05/14/17 16:00 98.5 45 27 163/76 (105) 96 05/14/17 16:00 46 05/14/17 15:45 46 147/65 05/14/17 15:00 44 17 187/81 (116) 98 05/14/17 14:28 47 193/79 05/14/17 14:00 48 05/14/17 14:00 98 Nasal Cannula 2.00 05/14/17 14:00 97.6 48 16 193/78 (116) 98 05/14/17 13:52 47 211/82 05/14/17 13:22 05/14/17 13:08 52 205/83 05/14/17 13:00 54 16 195/77 (116) 98 Nasal Cannula 2.00 05/14/17 12:50 52 16 204/88 (126) 98 Nasal Cannula 2.00 05/14/17 12:30 55 17 196/93 (127) 98 Nasal Cannula 2.00 05/14/17 12:00 49 14 205/83 (123) 100 Nasal Cannula 2.00 05/14/17 11:30 59 16 210/83 (125) 100 Nasal Cannula 2.00 05/14/17 11:00 49 16 201/84 (123) 99 Nasal Cannula 2.00 05/14/17 10:00 50 16 214/94 (134) 97 Nasal Cannula 2.00 05/14/17 09:30 53 20 202/82 (122) 97 Nasal Cannula 2.00 05/14/17 09:00 53 16 212/91 (131) 98 Nasal Cannula 2.00 05/14/17 08:00 52 16 215/98 (137) 99 Nasal Cannula 2.00 I/O 05/14/17 05/14/17 05/14/17 05/15/17 05/15/17 05/15/17 07:00 15:00 23:00 07:00 15:00 23:00 Intake Total 431.8 ml 400 ml Output Total 775 ml 450 ml Balance -343.2 ml -50 ml Intake Oral 416 ml 400 ml IV Total 15.8 ml Output Urine Total 775 ml 450 ml # Voids 1 Result Diagram: 05/14/17 0650 05/15/17 0409 Imaging Last Impressions Chest X-Ray 05/14/17 0630 Signed Impressions: Service Date/Time: Sunday, May 14, 2017 06:34 - CONCLUSION: Mild interstitial prominence may reflect mild edema. No consolidation. You Zuleta MD Objective Remarks GENERAL: This is a well-nourished, well-developed patient, in no apparent distress. CARDIOVASCULAR: Regular rate and regular rhythm without murmurs, gallops, or rubs. RESPIRATORY: Clear to auscultation. Breath sounds equal bilaterally. No wheezes , rales, or rhonchi. GASTROINTESTINAL: Abdomen soft, non-tender, nondistended. Normal, active bowel sounds MUSCULOSKELETAL: Extremities without clubbing, cyanosis, or edema. NEURO: Alert & Oriented x4 to person, place, time, situation. Moves all ext x4 Medications and IVs Inpatient Medications Acetaminophen (Tylenol) 650 mg Q4H PRN PO HEADACHE Last administered on 18:19; Start 05/14/17 at 13:00 Amitriptyline HCl (Elavil) 10 mg HS PO Last administered on 05/14/17at 20:21; Start 05/14/17 at 21:00 Aspirin (Aspirin) 325 mg ONCE ONCE PO Last administered on 05/14/17 08:17; Start 05/14/17 at 08:00; Stop 05/14/17 at 08:01; Status DC Atorvastatin Calcium (Lipitor) 80 mg HS PO Last administered on 05/14/17 20:21 ; Start 05/14/17 at 21:00 Chlorhexidine Gluconate (Chlorhexidine 2% Cloth) 3 pack UNSCH PRN TOPICAL HYGIENIC CARE; Start 05/14/17 at 19:00; Stop 05/19/17 at 18:48 Clonidine (Catapres) 0.1 mg ONCE ONCE PO Last administered on 05/14/17at 12:07; Start 05/14/17 at 12:00; Stop 05/14/17 at 12:04; Status DC Dextrose (D50w (Vial) Inj) 50 ml UNSCH PRN IV PUSH HYPOGLYCEMIA-SEE COMMENTS; Start 05/14/17 at 08:30 Enalaprilat (Vasotec Inj) 1.25 mg Q8H PRN IV PUSH SBP> OR = 180, DBP> OR = 100 Last administered on 05/14/17at 09:11; Start 05/14/17 at 11:00 Furosemide (Lasix Inj) 40 mg DAILY IV PUSH ; Start 05/15/17 at 09:00 Glucagon (Glucagon Inj) 1 mg UNSCH PRN OTHER HYPOGLYCEMIA-SEE COMMENTS; Start 05/14/17 at 08:30 Heparin Sodium (Porcine) (Heparin Inj) 5,000 units Q12HR SQ Last administered on 05/14/17 20:21; Start 05/14/17 at 09:00 Influenza Virus Vaccine (Flu (Quadrivalent) Vaccine Inj) 0.5 ml ONCE ONCE IM ; Start 05/15/17 at 10:00; Stop 05/15/17 at 10:01 Insulin Aspart (NovoLOG SUPPLEMENTAL SCALE) 1 ACHS SLIDING SCALE SQ ; Start 05/14/17 at 12:00 Metoprolol Tartrate (Lopressor) 25 mg BID PO Last administered on 05/14/17 09: 08; Start 05/14/17 at 09:00 Miscellaneous Information Patient in critical care unit? Ass... [id number] .[id number] Last administered on 05/14/17 19:00; Start 05/14/17 at 19:00 Nifedipine (Procardia Xl) 30 mg ONCE ONCE PO Last administered on 05/14/17at 10: 34; Start 05/14/17 at 10:30; Stop 05/14/17 at 10:31; Status DC Nitroglycerin (Nitroglycerin 2% Oint) 0.5 inch ONCE ONCE TOP Last administered on 05/14/17at 08:17; Start 05/14/17 at 08:00; Stop 05/14/17 at 08:01; Status DC Nitroglycerin (Nitrostat Sl) 0.4 mg Q5M PRN SL CHEST PAIN; Start 05/14/17 at 08: 45 Nitroglycerin/ Dextrose 250 ml @ 1.5 mls/hr TITRATE PRN IV Hypertension Last administered on 05/14/17at 13:08; Start 05/14/17 at 13:00 Potassium Chloride (KCl) 20 meq DAILY PO Last administered on 05/14/17 09:08; Start 05/14/17 at 09:00 Sodium Chloride (NS Flush) 2 ml UNSCH PRN IVF FLUSH AFTER USING IV ACCESS Last administered on 05/14/17at 08:19; Start 05/14/17 at 06:30 A/P Problem List: (1) CHF (congestive heart failure) ICD Code: I50.9 - Heart failure, unspecified Status: Acute Assessment and Plan A/P - decompensated CHF continue with IV diuretics with close monitoring of renal function. continue BB- daily weight. echo pending. consider cardiology consult pending the clinical course and result of echo. keep on oxygen as needed to keep O2 sat >90%. medical record from [facility] was reviewed; venous doppler of the left lower extremity with no DVT. -CAD- s/p stent placement with reported chest pain serial troponin negative and no acute St-T changes on EKG.she's currently chest -pain free- continue aspirin, BB and statin- -hypertensive urgency; still on Nitro drip- continue metoprolol- will add Procardia- will try to taper off the Nitro drip. continue to monitor the BP closely and adjust the regimen as needed. -CKD- will monitor the renal function closely while on diuretics. -diabetes mellitus; accu-check with SSI for now. -dyslipidemia;resume statin -DVT prophylaxis with subq Heparin patient is still on Nitro drip- will continue to monitor in ICU. d/w the RN. Problem Qualifiers (1) CHF (congestive heart failure): Qualified Codes: I50.9 - Heart failure, unspecified Rahul Capps MD May 15, 2017 07:48
[2017-05-15] MEDS: INSULIN ASPART SUPPLEMENTAL SCALE SQ SCH ×4 (08:00→20:57)
[2017-05-15] MEDS: FUROSEMIDE 40 MG/4 ML VIAL IV PUSH SCH (08:28)
[2017-05-15] MEDS: POTASSIUM CHLORIDE 20 MEQ CONTROLLED RELEASE TAB PO SCH (08:28)
[2017-05-15] MEDS: NIFEdipine 30 MG SUSTAINED RELEASE TAB PO SCH (08:29)
[2017-05-15] MEDS: HEPARIN SODIUM - SQ 10,000 UNITS/ML VIAL SQ SCH ×2 (08:29→20:58)
[2017-05-15] MEDS: METOPROLOL TARTRATE 25 MG TAB PO SCH ×2 (08:30→20:57)
[2017-05-15] MEDS ORDERED: INFLUENZA VIRUS VACCINE (QUADRIVALENT) 0.5 ML SYR IM ONE (10:00)
[2017-05-15] MEDS: ENALAPRILAT 1.25 MG/ML VIAL IV PUSH PRN (18:14)
[2017-05-15] MEDS: ACETAMINOPHEN 325 MG TAB PO PRN (20:58)
[2017-05-15] MEDS: ATORVASTATIN 80 MG TAB PO SCH (20:58)
[2017-05-15] MEDS: AMITRIPTYLINE HCL 10 MG TAB PO SCH (20:58)
[2017-05-16] VITALS (20 sets, daily range): BP systolic 135–182; BP diastolic 60–78; PULSE 57–83; RESP 17–43; TEMP 97.7–98.6; O2SAT 96–99
[2017-05-16 07:00] LABS: BICARBONATE 25.4 MEQ/L (21.0-32.0); CALCIUM 8.8 MG/DL (8.5-10.1); CREATININE 2.16 MG/DL (0.50-1.00)
[2017-05-16] MEDS: INSULIN ASPART SUPPLEMENTAL SCALE SQ SCH ×4 (07:26→19:54)
[2017-05-16] MEDS: METOPROLOL TARTRATE 25 MG TAB PO SCH ×2 (09:19→19:53)
[2017-05-16] MEDS: NIFEdipine 30 MG SUSTAINED RELEASE TAB PO SCH (09:19)
[2017-05-16] MEDS: POTASSIUM CHLORIDE 20 MEQ CONTROLLED RELEASE TAB PO SCH (09:19)
[2017-05-16] MEDS: FUROSEMIDE 40 MG/4 ML VIAL IV PUSH SCH (09:20)
[2017-05-16] MEDS: HEPARIN SODIUM - SQ 10,000 UNITS/ML VIAL SQ SCH ×2 (09:20→19:54)
[2017-05-16] MEDS ORDERED: NIFEdipine 30 MG SUSTAINED RELEASE TAB PO ONE ×2 (13:15→19:00)
--- NOTE | 2017-05-16 13:19 | HHI.PR ---
Subjective Remarks in no acute distress. has some back pain. denies chest pain. BP trend noted; still on Nitro drip. seems to be weak. d/w the RN at the bedside. Objective Vitals Vital Signs Date Time Temp Pulse Resp B/P (MAP) Pulse Ox O2 Delivery O2 Flow Rate FiO2 05/16/17 11:00 57 05/16/17 10:06 97 Nasal Cannula 2.00 05/16/17 10:00 58 05/16/17 09:00 83 172/74 05/16/17 09:00 83 05/16/17 08:00 70 05/16/17 08:00 98.2 70 21 97 05/16/17 07:00 98 Nasal Cannula 2.00 05/16/17 07:00 70 05/16/17 07:00 70 05/16/17 06:00 69 05/16/17 04:00 71 05/16/17 04:00 97.7 71 18 164/72 (102) 96 05/16/17 02:00 68 05/16/17 00:00 63 05/16/17 00:00 97.9 63 17 135/64 (87) 96 05/15/17 22:00 59 05/15/17 20:00 98 Nasal Cannula 2.00 05/15/17 20:00 79 05/15/17 20:00 98.7 74 18 176/75 (108) 96 05/15/17 18:00 79 05/15/17 16:00 71 05/15/17 16:00 98.0 68 18 188/79 (115) 97 05/15/17 14:00 63 I/O 05/15/17 05/15/17 05/15/17 05/16/17 05/16/17 05/16/17 07:00 15:00 23:00 07:00 15:00 23:00 Intake Total 400 ml 412 ml Output Total 450 ml 500 ml Balance -50 ml -88 ml Intake Oral 400 ml 300 ml IV Total 112 ml Output Urine Total 450 ml 500 ml # Bowel Movements 0 Result Diagram: 05/14/17 0650 05/16/17 0547 Imaging Last Impressions Chest X-Ray 05/14/17 0630 Signed Impressions: Service Date/Time: Sunday, May 14, 2017 06:34 - CONCLUSION: Mild interstitial prominence may reflect mild edema. No consolidation. You Zuleta MD Objective Remarks GENERAL: This is a well-nourished, well-developed patient, in no apparent distress. CARDIOVASCULAR: Regular rate and regular rhythm without murmurs, gallops, or rubs. RESPIRATORY: Clear to auscultation. Breath sounds equal bilaterally. No wheezes , rales, or rhonchi. GASTROINTESTINAL: Abdomen soft, non-tender, nondistended. Normal, active bowel sounds MUSCULOSKELETAL: Extremities without clubbing, cyanosis, or edema. NEURO: Alert & Oriented x4 to person, place, time, situation. Moves all ext x4 Medications and IVs Inpatient Medications Acetaminophen (Tylenol) 650 mg Q4H PRN PO HEADACHE Last administered on 20:58; Start 05/14/17 at 13:00 Amitriptyline HCl (Elavil) 10 mg HS PO Last administered on 05/15/17 20:58; Start 05/14/17 at 21:00 Aspirin (Aspirin) 325 mg ONCE ONCE PO Last administered on 05/14/17at 08:17; Start 05/14/17 at 08:00; Stop 05/14/17 at 08:01; Status DC Atorvastatin Calcium (Lipitor) 80 mg HS PO Last administered on 05/15/17 20:58 ; Start 05/14/17 at 21:00 Chlorhexidine Gluconate (Chlorhexidine 2% Cloth) 3 pack UNSCH PRN TOPICAL HYGIENIC CARE; Start 05/14/17 at 19:00; Stop 05/19/17 at 18:48 Clonidine (Catapres) 0.1 mg ONCE ONCE PO Last administered on 05/14/17at 12:07; Start 05/14/17 at 12:00; Stop 05/14/17 at 12:04; Status DC Dextrose (D50w (Vial) Inj) 50 ml UNSCH PRN IV PUSH HYPOGLYCEMIA-SEE COMMENTS; Start 05/14/17 at 08:30 Enalaprilat (Vasotec Inj) 1.25 mg Q8H PRN IV PUSH SBP> OR = 180, DBP> OR = 100 Last administered on 05/15/17at 18:14; Start 05/14/17 at 11:00 Furosemide (Lasix Inj) 40 mg DAILY IV PUSH Last administered on 05/16/17at 09:20 ; Start 05/15/17 at 09:00 Glucagon (Glucagon Inj) 1 mg UNSCH PRN OTHER HYPOGLYCEMIA-SEE COMMENTS; Start 05/14/17 at 08:30 Heparin Sodium (Porcine) (Heparin Inj) 5,000 units Q12HR SQ Last administered on 05/16/17 09:20; Start 05/14/17 at 09:00 Influenza Virus Vaccine (Flu (Quadrivalent) Vaccine Inj) 0.5 ml ONCE ONCE IM Last administered on 05/15/17 08:31; Start 05/15/17 at 10:00; Stop 05/15/17 at 10: 01; Status DC Insulin Aspart (NovoLOG SUPPLEMENTAL SCALE) 1 ACHS SLIDING SCALE SQ Last administered on 05/16/17 13:12; Start 05/14/17 at 12:00 Metoprolol Tartrate (Lopressor) 25 mg BID PO Last administered on 05/16/17 09: 19; Start 05/14/17 at 09:00 Miscellaneous Information Patient in critical care unit? Ass... Q361D .XX Last administered on 05/14/17 19:00; Start 05/14/17 at 19:00 Nifedipine (Procardia Xl) 30 mg DAILY PO Last administered on 05/16/17 09:19; Start 05/15/17 at 09:00 Nitroglycerin (Nitroglycerin 2% Oint) 0.5 inch ONCE ONCE TOP Last administered on 05/14/17 08:17; Start 05/14/17 at 08:00; Stop 05/14/17 at 08:01; Status DC Nitroglycerin (Nitrostat Sl) 0.4 mg Q5M PRN SL CHEST PAIN; Start 05/14/17 at 08: 45 Nitroglycerin/ Dextrose 250 ml @ 1.5 mls/hr TITRATE PRN IV Hypertension Last administered on 05/14/17 13:08; Start 05/14/17 at 13:00 Potassium Chloride (KCl) 20 meq DAILY PO Last administered on 05/16/17 09:19; Start 05/14/17 at 09:00 Sodium Chloride (NS Flush) 2 ml UNSCH PRN IVF FLUSH AFTER USING IV ACCESS Last administered on 05/14/17 08:19; Start 05/14/17 at 06:30 A/P Problem List: (1) CHF (congestive heart failure) ICD Code: I50.9 - Heart failure, unspecified Status: Acute Assessment and Plan A/P - decompensated CHF continue with IV diuretics with close monitoring of renal function. continue BB- daily weight. echo pending. consider cardiology consult pending the clinical course and result of echo. keep on oxygen as needed to keep O2 sat >90%. medical record from [facility] was reviewed; venous doppler of the left lower extremity with no DVT. -CAD- s/p stent placement with reported chest pain serial troponin negative and no acute St-T changes on EKG.she's currently chest -pain free- continue aspirin, BB and statin- -hypertensive urgency; still on Nitro drip- continue metoprolol- will increase Procardia XL- will try to taper off the Nitro drip today. continue to monitor the BP closely and adjust the regimen as needed. -CKD- will monitor the renal function closely while on diuretics. -diabetes mellitus; accu-check with SSI for now. -dyslipidemia;resumed statin -DVT prophylaxis with subq Heparin -consult PT. patient is still on Nitro drip- will continue to monitor in ICU. d/w the RN. Problem Qualifiers (1) CHF (congestive heart failure): Qualified Codes: I50.9 - Heart failure, unspecified Rahul Capps MD May 16, 2017 13:19
[2017-05-16] MEDS: ACETAMINOPHEN/HYDROcodone 325 MG/5 MG TAB PO PRN (16:09)
[2017-05-16] MEDS: NITROGLYCERIN-D5W 50 MG/250 ML 250 ML IV PRN (16:47)
--- NOTE | 2017-05-16 17:30 | ECHRPT ---
Indication: HEART FAILURE CONCLUSIONS Normal left ventricular size. Wall thickness is normal. The left ventricular systolic function is hyperdynamic with an estimated ejection fraction in the ra nge of 65- 70%. The left atrial size is eegvqghr-mh-unjopxkb dilated. The right atrial size is hspf-sq-oocmyuljde dilated. Myts-cs-yxvquwjf mitral valve regurgitation. Aortic valve sclerosis is present. There is trace tricuspid valve regurgitation. BP: 178 / 75 HR: 55 Rhythm: Atrial fibrillation, Atrial flut ter MEASUREMENTS (Male / Female) Normal Values Technical Quality:Fair 2D ECHO LV Diastolic Diameter PLAX 4.4 cm 4.2 - 5.9 / 3.9 - 5.3 cm LV Systolic Diameter PLAX 3.0 cm IVS Diastolic Thickness 0.9 cm 0.6 - 1.0 / 0.6 - 0.9 cm LVPW Diastolic Thickness 0.9 cm 0.6 - 1.0 / 0.6 - 0.9 cm LV Relative Wall Thickness 0.4 RV Internal Dim ED PLAX 2.2 cm LVOT Diameter 1.6 cm Aortic Root Diameter 2.4 cm LA Systolic Diameter LX 3.5 cm 3.0 - 4.0 / 2.7 - 3.8 cm M-MODE AV Cusp Separation MM 1.5 cm DOPPLER AV Peak Velocity 156.0 cm/s AV Peak Gradient 9.7 mmHg AV Mean Gradient 5.0 mmHg AV Velocity Time Integral 33.8 cm LVOT Peak Velocity 102.0 cm/s LVOT Peak Gradient 4.2 mmHg LVOT Velocity Time Integral 25.0 cm AV Area Cont Eq vti 1.5 cm AV Area Cont Eq pk 1.3 cm Mitral E Point Velocity 115.0 cm/s Mitral A Point Velocity 111.0 cm/s Mitral E to A Ratio 1.0 LV E' Lateral Velocity 5.5 cm/s Mitral E to LV E' Lateral Ratio 21.1 LV E' Septal Velocity 5.8 cm/s Mitral E to LV E' Septal Ratio 20.0 TR Peak Velocity 235.0 cm/s TR Peak Gradient 22.1 mmHg Right Atrial Pressure 10.0 mmHg Pulmonary Artery Systolic Pressu 32.1 mmHg Right Ventricular Systolic Press 32.1 mmHg PV Peak Velocity 84.2 cm/s PV Peak Gradient 2.8 mmHg FINDINGS LEFT VENTRICLE Normal left ventricular size. Wall thickness is normal. The left ventricular systolic function is hyperdynamic with an estimated ejection fraction in the ra nge of 65- 70%. RIGHT VENTRICLE Normal right ventricular size and systolic function. LEFT ATRIUM The left atrial size is udqtbjhj-fk-iffcxmxt dilated. RIGHT ATRIUM The right atrial size is znie-ig-whiofifdnb dilated. ATRIAL SEPTUM No atrial level shunt is demonstrated by color flow Doppler interrogation. AORTA The aortic root and proximal ascending aorta are normal in size on limited imaging. MITRAL VALVE Ijgb-uk-hovpqjjq mitral valve regurgitation. AORTIC VALVE Aortic valve sclerosis is present. TRICUSPID VALVE There is trace tricuspid valve regurgitation. PULMONARY VALVE No pulmonary valve regurgitation or stenosis. VESSELS The inferior vena cava is normal in size. PERICARDIUM No pericardial effusion. Fadi López MD, FACC (Electronically Signed) Final Date:16 May 2017 17:29
[2017-05-16] MEDS ORDERED: cloNIDine HCL 0.1 MG TAB PO PRN (19:00)
[2017-05-16] MEDS: ATORVASTATIN 80 MG TAB PO SCH (19:52)
[2017-05-16] MEDS: AMITRIPTYLINE HCL 10 MG TAB PO SCH (19:53)
[2017-05-17] VITALS (18 sets, daily range): BP systolic 137–175; BP diastolic 60–102; PULSE 55–86; RESP 15–22; TEMP 97.9–98.7; O2SAT 92–99
[2017-05-17] MEDS: CHLORHEXIDINE GLUCONATE 2 % 1 PACK (2 CLOTHS)(taper/protocol) TOPICAL SCH (04:00)
--- NOTE | 2017-05-17 07:37 | HHI.PR ---
Subjective Remarks in no acute distress. off the nitro-drip. denies chest pain or sob.' d/w the RN and no acute issues over night. Objective Vitals Vital Signs Date Time Temp Pulse Resp B/P (MAP) Pulse Ox O2 Delivery O2 Flow Rate FiO2 05/17/17 06:00 69 05/17/17 04:00 98.6 63 20 147/65 (92) 95 05/17/17 04:00 63 05/17/17 02:00 57 05/17/17 00:00 98.7 55 22 137/60 (85) 98 05/17/17 00:00 55 05/16/17 22:00 59 05/16/17 20:00 98.6 75 37 182/78 (112) 98 05/16/17 20:00 75 05/16/17 19:00 98 Nasal Cannula 2.00 05/16/17 19:00 98 Nasal Cannula 2.00 05/16/17 18:45 92 179/78 05/16/17 18:00 74 05/16/17 18:00 74 186/77 05/16/17 17:30 72 196/81 05/16/17 17:00 71 05/16/17 17:00 71 178/79 05/16/17 16:47 68 173/76 05/16/17 16:00 98.0 63 43 182/60 (100) 97 05/16/17 16:00 63 05/16/17 15:00 64 05/16/17 14:30 69 147/65 05/16/17 14:00 61 05/16/17 13:00 63 05/16/17 12:00 64 05/16/17 12:00 98.3 64 20 164/72 (102) 99 05/16/17 11:00 57 05/16/17 10:06 97 Nasal Cannula 2.00 05/16/17 10:00 58 05/16/17 09:00 83 172/74 05/16/17 09:00 83 05/16/17 08:00 70 05/16/17 08:00 98.2 70 21 97 I/O 05/16/17 05/16/17 05/16/17 05/17/17 05/17/17 05/17/17 07:00 15:00 23:00 07:00 15:00 23:00 Intake Total 350 ml 100 ml Output Total 600 ml Balance -250 ml 100 ml Intake Oral 350 ml 100 ml Output Urine Total 600 ml # Voids 1 # Bowel Movements 1 Result Diagram: 05/14/17 0650 05/16/17 0547 Imaging Last Impressions Chest X-Ray 05/14/17 0630 Signed Impressions: Service Date/Time: Sunday, May 14, 2017 06:34 - CONCLUSION: Mild interstitial prominence may reflect mild edema. No consolidation. You Zuleta MD Objective Remarks GENERAL: This is a well-nourished, well-developed patient, in no apparent distress. CARDIOVASCULAR: Regular rate and regular rhythm without murmurs, gallops, or rubs. RESPIRATORY: Clear to auscultation. Breath sounds equal bilaterally. No wheezes , rales, or rhonchi. GASTROINTESTINAL: Abdomen soft, non-tender, nondistended. Normal, active bowel sounds MUSCULOSKELETAL: Extremities without clubbing, cyanosis, or edema. NEURO: Alert & Oriented x4 to person, place, time, situation. Moves all ext x4 Procedures none Medications and IVs Inpatient Medications Acetaminophen (Tylenol) 650 mg Q4H PRN PO HEADACHE Last administered on 20:58; Start 05/14/17 at 13:00 Acetaminophen/ Hydrocodone Bitart (Melrude 5-325 Mg) 1 tab Q6H PRN PO PAIN 1-10 Last administered on 05/16/17at 16:09; Start 05/16/17 at 13:15 Amitriptyline HCl (Elavil) 10 mg HS PO Last administered on 05/16/17at 19:53; Start 05/14/17 at 21:00 Aspirin (Aspirin) 325 mg ONCE ONCE PO Last administered on 05/14/17at 08:17; Start 05/14/17 at 08:00; Stop 05/14/17 at 08:01; Status DC Atorvastatin Calcium (Lipitor) 80 mg HS PO Last administered on 05/16/17at 19:52 ; Start 05/14/17 at 21:00 Chlorhexidine Gluconate (Chlorhexidine 2% Cloth) 3 pack UNSCH PRN TOPICAL HYGIENIC CARE; Start 05/14/17 at 19:00; Stop 05/19/17 at 18:48 Clonidine (Catapres) 0.1 mg Q8HR PRN PO SBP> OR = 180, DBP> OR = 100; Start 05/16/17 at 19:00 Dextrose (D50w (Vial) Inj) 50 ml UNSCH PRN IV PUSH HYPOGLYCEMIA-SEE COMMENTS; Start 05/14/17 at 08:30 Enalaprilat (Vasotec Inj) 1.25 mg Q8H PRN IV PUSH SBP> OR = 180, DBP> OR = 100 Last administered on 05/15/17at 18:14; Start 05/14/17 at 11:00 Furosemide (Lasix Inj) 40 mg DAILY IV PUSH Last administered on 05/16/17at 09:20 ; Start 05/15/17 at 09:00 Glucagon (Glucagon Inj) 1 mg UNSCH PRN OTHER HYPOGLYCEMIA-SEE COMMENTS; Start 05/14/17 at 08:30 Heparin Sodium (Porcine) (Heparin Inj) 5,000 units Q12HR SQ Last administered on 05/16/17 19:54; Start 05/14/17 at 09:00 Influenza Virus Vaccine (Flu (Quadrivalent) Vaccine Inj) 0.5 ml ONCE ONCE IM Last administered on 05/15/17at 08:31; Start 05/15/17 at 10:00; Stop 05/15/17 at 10: 01; Status DC Insulin Aspart (NovoLOG SUPPLEMENTAL SCALE) 1 ACHS SLIDING SCALE SQ Last administered on 05/16/17 19:54; Start 05/14/17 at 12:00 Metoprolol Tartrate (Lopressor) 25 mg BID PO Last administered on 05/16/17 19: 53; Start 05/14/17 at 09:00 Miscellaneous Information Patient in critical care unit? Ass... Q361D .XX Last administered on 05/14/17 19:00; Start 05/14/17 at 19:00 Nifedipine (Procardia Xl) 30 mg ONCE ONCE PO Last administered on 05/16/17 19: 53; Start 05/16/17 at 19:00; Stop 05/16/17 at 19:04; Status DC Nitroglycerin (Nitroglycerin 2% Oint) 0.5 inch ONCE ONCE TOP Last administered on 05/14/17 08:17; Start 05/14/17 at 08:00; Stop 05/14/17 at 08:01; Status DC Nitroglycerin (Nitrostat Sl) 0.4 mg Q5M PRN SL CHEST PAIN; Start 05/14/17 at 08: 45 Nitroglycerin/ Dextrose 250 ml @ 1.5 mls/hr TITRATE PRN IV Hypertension Last administered on 05/16/17at 16:47; Start 05/14/17 at 13:00 Potassium Chloride (KCl) 20 meq DAILY PO Last administered on 05/16/17at 09:19; Start 05/14/17 at 09:00 Sodium Chloride (NS Flush) 2 ml UNSCH PRN IVF FLUSH AFTER USING IV ACCESS Last administered on 05/14/17at 08:19; Start 05/14/17 at 06:30 A/P Problem List: (1) CHF (congestive heart failure) ICD Code: I50.9 - Heart failure, unspecified Status: Acute Assessment and Plan A/P - acute on chronic diastolic CHF echo with EF 65%. continue with IV diuretics with close monitoring of renal function. continue BB- daily weight. keep on oxygen as needed to keep O2 sat >90%. medical record from [facility] was reviewed; venous doppler of the left lower extremity with no DVT. -CAD- s/p stent placement with reported chest pain serial troponin negative and no acute St-T changes on EKG.she's currently chest -pain free- continue aspirin, BB and statin- -hypertensive urgency; off Nitro-drip since last night. continue metoprolol - added Procardia- continue to monitor the BP closely and adjust the regimen as needed. -CKD- will monitor the renal function closely while on diuretics. -diabetes mellitus; accu-check with SSI for now. -dyslipidemia;resumed statin -DVT prophylaxis with subq Heparin -consulted PT. transfer to telemetry within the next 24 hrs if BP remains stable. Discharge Planning dc planning within the next one-two days if clinically stable- pending PT evaluation. Problem Qualifiers (1) CHF (congestive heart failure): Qualified Codes: I50.9 - Heart failure, unspecified Rahul Capps MD May 17, 2017 07:37
[2017-05-17] MEDS: INSULIN ASPART SUPPLEMENTAL SCALE SQ SCH ×4 (08:00→20:46)
[2017-05-17] MEDS: METOPROLOL SUCCINATE 25 MG EXTENDED RELEASE TAB PO SCH (08:16)
[2017-05-17] MEDS: NIFEdipine 30 MG SUSTAINED RELEASE TAB PO SCH (08:17)
[2017-05-17] MEDS: FUROSEMIDE 40 MG/4 ML VIAL IV PUSH SCH (08:17)
[2017-05-17] MEDS: HEPARIN SODIUM - SQ 10,000 UNITS/ML VIAL SQ SCH ×2 (08:17→20:46)
[2017-05-17] MEDS: ASPIRIN EC 81 MG TABEC PO SCH (08:17)
[2017-05-17] MEDS: POTASSIUM CHLORIDE 20 MEQ CONTROLLED RELEASE TAB PO SCH (08:17)
[2017-05-17] MEDS: ACETAMINOPHEN/HYDROcodone 325 MG/5 MG TAB PO PRN ×2 (08:18→17:48)
[2017-05-17] MEDS ORDERED: NIFEdipine 60 MG SUSTAINED RELEASE TAB PO SCH (09:00)
[2017-05-17 11:36] LABS: BICARBONATE 27.7 MEQ/L (21.0-32.0); CALCIUM 9.8 MG/DL (8.5-10.1); CREATININE 2.03 MG/DL (0.50-1.00)
--- NOTE | 2017-05-17 13:59 | PQ ---
Physician Query Response Document PATIENT: TIA EPPS : [id number] ADMIT DATE: 05/14/2017 8:10 AM DISCH DATE: RESPONDING PROVIDER #: [email or web address] QUERY TEXT: Kidney Disease, Chronic CKD Stage Chronic Kidney Disease (CKD) is documented in the Medical Record. Please specify the disease stage ( includes probable or suspected) Such as: -- Chronic kidney disease Stage 1 -- Chronic kidney disease Stage 2 -- Chronic kidney disease Stage 3 -- Chronic kidney disease Stage 4 -- Chronic kidney disease Stage 5 -- Chronic kidney disease Stage 5, requiring dialysis -- End Stage Renal Disease -- Other, please specify Stages are defined by the [employer] as follows: CKD Stage I GFR >= 90 ml / min per 1.73 m2 and persistent albuminuria CKD Stage 2 GFR between 60 and 89 with persistent albuminuria CKD Stage 3 GFR between 30 and 59 CKD Stage 4 GFR between 15 and 29 CKD Stage 5 GFR between <15 or End Stage Renal Disease Please call [facility] @ [email or web address] [phone] for assistance,. Thank you. The patient's Clinical Indicators include: PER PROGRESS NOTE: -CKD- will monitor the renal function closely while on diuretics. 05/16/17: BUN=35; CREATININE =2.16; EST GFR=22 Query created by: Jo-Ann Vera on 05/16/2017 4:37 PM RESPONSE TEXT: Possible CKD- stage 4. Electronically signed by: Rahul Capps MD 05/17/2017 1:56 PM
[2017-05-17] MEDS: AMITRIPTYLINE HCL 10 MG TAB PO SCH (20:46)
[2017-05-17] MEDS: ATORVASTATIN 80 MG TAB PO SCH (20:46)
[2017-05-18] VITALS (8 sets, daily range): BP systolic 120–144; BP diastolic 58–65; PULSE 53–73; RESP 14–23; TEMP 97.7–98.2; O2SAT 97–99
[2017-05-18] MEDS: CHLORHEXIDINE GLUCONATE 2 % 1 PACK (2 CLOTHS)(taper/protocol) TOPICAL SCH (04:00)
[2017-05-18 05:46] LABS: BICARBONATE 28.1 MEQ/L (21.0-32.0); CALCIUM 9.4 MG/DL (8.5-10.1); CREATININE 1.99 MG/DL (0.50-1.00)
[2017-05-18] MEDS: FUROSEMIDE 40 MG/4 ML VIAL IV PUSH SCH (08:54)
[2017-05-18] MEDS: ASPIRIN EC 81 MG TABEC PO SCH (08:54)
[2017-05-18] MEDS: POTASSIUM CHLORIDE 20 MEQ CONTROLLED RELEASE TAB PO SCH (08:54)
[2017-05-18] MEDS: HEPARIN SODIUM - SQ 10,000 UNITS/ML VIAL SQ SCH (08:54)
[2017-05-18] MEDS: NIFEdipine 30 MG SUSTAINED RELEASE TAB PO SCH (08:54)
[2017-05-18] MEDS: METOPROLOL SUCCINATE 25 MG EXTENDED RELEASE TAB PO SCH (08:54)
[2017-05-18] MEDS: INSULIN ASPART SUPPLEMENTAL SCALE SQ SCH (08:56)
--- NOTE | 2017-05-18 09:09 | HHI.FF ---
Face to Face Verification Diagnosis: (1) Hypertensive urgency (2) CHF (congestive heart failure) Home Health Nursing Order: Nursing assessment with vital signs (please monitor BPs) I have seen patient Quynh Hicks on 05/18/17. My clinical findings support the need for the requested home health care services because: Pt was admitted for HTN urgency. Please monitor blood pressures. Need for psychosocial assistance I certify that my clinical findings support that this patient is homebound because: Pt was admitted for HTN urgency. Please monitor blood pressures. Need for psychosocial assistance Pt states she doesn't have much help and worries that her BP's will not be controlled. She states that she may not be able to get into her PCP's office next week for a follow up. She would feel more comfortable if a nurse would come monitor her BP's Monica Stevens MD May 18, 2017 09:09
[2017-05-18] MEDS ORDERED: ECASA81 PO (09:12)
[2017-05-18] MEDS ORDERED: METO1TAB42 PO (09:12)
[2017-05-18] MEDS ORDERED: FURO1TAB60 PO (09:12)
[2017-05-18] MEDS ORDERED: POTA20TA5 PO (09:12)
[2017-05-18] MEDS ORDERED: PROC90TA PO (09:12)
[2017-05-18] MEDS: ACETAMINOPHEN/HYDROcodone 325 MG/5 MG TAB PO PRN (09:20)
--- NOTE | 2017-05-18 09:32 | HHI.DS ---
Discharge Summary Admission Date May 14, 2017 at 08:10 Discharge Date: May 18, 2017 Admitting Diagnosis chf, chest pain (1) CHF (congestive heart failure) ICD Code: I50.9 - Heart failure, unspecified Diagnosis: Principal Status: Acute (2) Hypertensive urgency ICD Code: I16.0 - Hypertensive urgency Status: Acute Procedures none Brief History - From Admission patient is a 81 y/o female with history of CAD, hypertension, diabetes, dyslipidemia presented to ER with sob. she says that she's been having sob for the past three weeks which has been gradually getting worse. she reports orthopnea, PND, swelling of the legs and two-pound weight gain within the last month. she says that she went to [facility] and had some tests done and she was discharged home. she had a f/u with her PCP. however her sob didn't improve when she decided to come to ER. she says that she had some chest pain about a week ago which lasted for a couple of days. pain was midsternal with no radiation and with no association with nausea, vomiting or diaphoresis. she's current;y chest pain free. CBC/BMP: 05/14/17 0650 05/18/17 0420 Significant Findings Laboratory Tests Test 05/16/17 05:47 05/17/17 10:51 05/18/17 04:20 Blood Urea Nitrogen 35 MG/DL (7-18) 33 MG/DL (7-18) 35 MG/DL (7-18) Creatinine 2.16 MG/DL (0.50-1.00) 2.03 MG/DL (0.50-1.00) 1.99 MG/DL (0.50-1.00) Random Glucose 142 MG/DL (74-106) 198 MG/DL (74-106) 147 MG/DL (74-106) Estimat Glomerular Filtration Rate 22 ML/MIN (>89) 24 ML/MIN (>89) 24 ML/MIN (>89) Imaging Last Impressions Chest X-Ray 05/14/17 0630 Signed Impressions: Service Date/Time: Sunday, May 14, 2017 06:34 - CONCLUSION: Mild interstitial prominence may reflect mild edema. No consolidation. You Zuleta MD PE at Discharge GENERAL: This is a well-nourished, well-developed patient, in no apparent distress. CARDIOVASCULAR: Regular rate and regular rhythm without murmurs, gallops, or rubs. RESPIRATORY: Clear to auscultation. Breath sounds equal bilaterally. No wheezes , rales, or rhonchi. GASTROINTESTINAL: Abdomen soft, non-tender, nondistended. Normal, active bowel sounds MUSCULOSKELETAL: Extremities without clubbing, cyanosis, or edema. NEURO: Alert & Oriented x4 to person, place, time, situation. Moves all ext x4 Pt update on day of discharge Pt denies any CP/SOB/N/V, has no complaints when I saw her. Used the restroom earlier and now waiting on breakfast. Hospital Course Pt admitted for acute on chronic diastolic CHF. echo with EF 65%. Pt was treated w lasix and will be discharged on it w supplemental potassium. continue BB and check weight. Fluid restriction. -CAD- s/p stent placement with reported chest pain serial troponin negative and no acute St-T changes on EKG. Pt has been chest- pain free- continue aspirin, BB and statin- Pt was also admitted for hypertensive urgency s/p Nitro-drip and has been off for the past 48 hrs. continue metoprolol and Procardia. Pt will need to f/u w PCP in 3-5 days for BP check and adjustments of meds. -CKD- stage 4. Pt initially not comfortable w discharge because she states that her cannot take care of her and she feels nervous about going home and not be able to check her blood pressures. She wanted to remain in the hospital as she felt more comfortable since we are monitoring vitals regularly. States it is not easy to get into her PCP's office for f/u. I offered her to get home health RN for vitals check and pt feels more comfortable w discharge plan. I did encouraged her to go to her PCP office on monday for a BP check and explained to her that her PCP would be notified by his/her RN if BP's are not well controlled and need BP med adjustments. I explained to her that the longer she remains in the hospital the higher her chances to acquiring hospital acquired infection. Pt voiced her understanding. Will consult CM for assistance w d/c planning Pt Condition on Discharge: Stable Discharge Disposition: Disch w/ Home Health Serv Discharge Time: > 30 minutes Discharge Instructions DIET: Follow Instructions for: Heart Healthy Diet, Diabetic Diet Fluid Restrictions: 1500 Activities you can perform: Regular-No Restrictions Follow up Referrals: Cardiology - 2 Weeks PCP Follow-up - 3-5 Days New Medications: Furosemide (Lasix) 40 Mg Tab 40 MG PO DAILY, #30 TAB 0 Refills Nifedipine ER 24 HR (Procardia XL) 90 Mg Tab 90 MG PO DAILY, #30 TAB 0 Refills Potassium Chloride Microencaps (Potassium Chloride Microencaps) 20 Meq Tab 20 MEQ PO DAILY for Electrolyte Replacement, #30 TAB [address] (Aspirin DR) 81 Mg Tabdr 81 MG PO DAILY, #30 TAB Metoprolol Succinate ER 24 HR (Metoprolol Succinate ER 24 HR) 25 Mg Tab 25 MG PO DAILY, #30 TAB Continued Medications: Amitriptyline (Amitriptyline) 10 Mg Tab 10 MG PO HS for Control Depression, #30 TAB 0 Refills Atorvastatin (Atorvastatin) 80 Mg Tab 80 MG PO HS for Cholesterol Management, #30 TAB 0 Refills Nitroglycerin SL (Nitroglycerin SL) 0.4 Mg Subl 0.4 MG SL DIRECTED PRN for CHEST PAIN, #100 TAB.SL 0 Refills ONE TABLET UNDER THE TONGUE NEEDED FOR CHEST PAIN, MAY REPEAT EVERY FIVE MINUTES FOR A TOTAL OF 3 DOSES OR CALL 911 IF NO RELIEF Discontinued Medications: Cephalexin (Keflex) 500 Mg Cap 500 MG PO Q8H for Infection, #30 CAP 0 Refills Monica Stevens MD May 18, 2017 09:32
== END 2017-05-18 13:15 | disposition home health service (06) | DRG 291 ==
LOC: NEPC 06:08 → NEDA 08:10 → HIMN 13:40
PROVIDERS: ADMIT Hospitalist; ATTEND Hospitalist
DX: I13.0 Hypertensive heart and chronic kidney disease with heart failure and stage 1 through stage 4 chronic kidney disease, or unspecified chronic kidney disease (principal); I50.33 Acute on chronic diastolic (congestive) heart failure; N18.4 Chronic kidney disease, stage 4 (severe); E11.22 Type 2 diabetes mellitus with diabetic chronic kidney disease; I16.0 Hypertensive urgency; N18.9 Chronic kidney disease, unspecified; I25.10 Atherosclerotic heart disease of native coronary artery without angina pectoris; E78.5 Hyperlipidemia, unspecified; Z23 Encounter for immunization; Z79.4 Long term (current) use of insulin; Z82.49 Family history of ischemic heart disease and other diseases of the circulatory system; Z88.0 Allergy status to penicillin; Z86.011 Personal history of benign neoplasm of the brain; Z85.72 Personal history of non-Hodgkin lymphomas; Z95.5 Presence of coronary angioplasty implant and graft
CPT/HCPCS: 71045; 80048; 82550; 82948; 83735; 83880; 84484; 85025; 85610; 85730; 87641; 90686; 93005; 93306; 94618; J1644; J1815; J1940; Q2038